=== PATIENT | male | born 1980 | race Caucasian/White ===

== ENCOUNTER 2016-10-28 15:01 | Inpatient (IN) | payer OTHER ==
[~2016-10-28] VITALS: Ht 175.3 cm; Wt 127.0 kg
[~2016-10-28 15:01] MED LIST: CLINDAMYCIN HC300 MG PO
[2016-10-28 16:03] LABS: EOSINOPHIL (%) 0.1 % (0-5); HEMATOCRIT 45.3 % (38.0-50.0); IMMATURE GRANULOCYTE (%) 0.2 % (0.0-0.7); IMMATURE GRANULOCYTE COUNT 0.2 K/uL; LYMPHOCYTE COUNT 0.8 K/uL (1.0-2.8); MCH 27.7 PG (29.0-34.0); MCHC 33.6 G/DL (30.0-36.0); MCV 82.5 FL (86-99); MEAN PLAT.VOLUME 9.6 uM^3 (9.0-12.4); MONOCYTE (%) 6.1 % (3-12); MONOCYTE COUNT 0.5 K/uL (0-0.8); NEUTROPHIL (%) 83.3 % (45-76); NEUTROPHIL COUNT 6.8 K/uL (1.8-6.4); PLATELET COUNT 278 K/uL (156-360); RBC DIS.WIDTH-CV 13.6 % (11.8-14.6); RBC DIS.WIDTH-SD 40.5 % (39-53); RED BLOOD COUNT 5.49 M/uL (4.00-5.50); WHITE BLOOD COUNT 8.2 K/uL (4.1-10.2)
[2016-10-28 16:21] LABS: CHLORIDE 104 mEq/L (99-109); POTASSIUM 5.1 mEq/L (3.7-5.4); SODIUM 137 mEq/L (136-147)
[2016-10-28 16:23] LABS: GLUCOSE 97 mg/dL (70-99)
[2016-10-28 16:24] LABS: ANION GAP 11 MEQ/L (2-14)
[2016-10-28 16:27] LABS: GFR ESTIMATE (CALCULATED) > 59 mL/min/
[2016-10-28 16:28] LABS: UREA NITROGEN (BUN) 10 mg/dL (9-23)
[2016-10-28 20:07] VITALS: BP 131/72
[2016-10-28 23:09] VITALS: BP 125/73
[2016-10-29 07:14] VITALS: BP 129/76
[2016-10-29 07:34] LABS: HEMATOCRIT 39.2 % (38.0-50.0); MCH 28.1 PG (29.0-34.0); MCHC 33.2 G/DL (30.0-36.0); MCV 84.7 FL (86-99); MEAN PLAT.VOLUME 9.9 uM^3 (9.0-12.4); PLATELET COUNT 213 K/uL (156-360); RBC DIS.WIDTH-CV 13.8 % (11.8-14.6); RED BLOOD COUNT 4.63 M/uL (4.00-5.50)
[2016-10-29 07:36] LABS: ANION GAP 5 MEQ/L (2-14); CHLORIDE 105 MEQ/L (99-109); GFR ESTIMATE (CALCULATED) > 59 mL/min/; GLUCOSE 92 mg/dL (70-99); SAMPLE HEMOLYSIS CHECK 0; SAMPLE ICTERIC CHECK 0; SAMPLE LIPEMIA CHECK 0; SODIUM 136 MEQ/L (136-147); UREA NITROGEN (BUN) 10 mg/dL (9-23)
[2016-10-29 07:37] LABS: POTASSIUM 3.7 MEQ/L (3.7-5.4)
[2016-10-29 07:54] LABS: WHITE BLOOD COUNT 4.6 K/uL (4.1-10.2)
[2016-10-29 15:51] VITALS: BP 158/64
[2016-10-29 22:43] VITALS: BP 122/66
[2016-10-30 07:12] LABS: EOSINOPHIL (%) 4.9 % (0-5); EOSINOPHIL COUNT 0.3 K/uL (0-0.3); HEMATOCRIT 40.5 % (38.0-50.0); IMMATURE GRANULOCYTE (%) 0.2 % (0.0-0.7); LYMPHOCYTE COUNT 1.7 K/uL (1.0-2.8); MCH 28.5 PG (29.0-34.0); MCHC 33.8 G/DL (30.0-36.0); MCV 84.4 FL (86-99); MEAN PLAT.VOLUME 9.9 uM^3 (9.0-12.4); MONOCYTE (%) 13.1 % (3-12); MONOCYTE COUNT 0.7 K/uL (0-0.8); NEUTROPHIL (%) 49.1 % (45-76); NEUTROPHIL COUNT 2.6 K/uL (1.8-6.4); PLATELET COUNT 175 K/uL (156-360); RBC DIS.WIDTH-CV 13.8 % (11.8-14.6); RBC DIS.WIDTH-SD 42.4 % (39-53); WHITE BLOOD COUNT 5.3 K/uL (4.1-10.2)
[2016-10-30 07:40] VITALS: BP 113/88
[2016-10-30 08:08] LABS: ALKALINE PHOSPHATASE 62 IU/L (3-129); ANION GAP 9 MEQ/L (2-14); CHLORIDE 107 MEQ/L (99-109); GFR ESTIMATE (CALCULATED) > 59 mL/min/; GLUCOSE 85 mg/dL (70-99); POTASSIUM 4.1 MEQ/L (3.7-5.4); SAMPLE HEMOLYSIS CHECK 0; SAMPLE ICTERIC CHECK 0; SAMPLE LIPEMIA CHECK 0; SODIUM 138 MEQ/L (136-147); TOTAL BILIRUBIN 0.5 MG/DL (0.0-1.0); UREA NITROGEN (BUN) 10 mg/dL (9-23)
[2016-10-30 08:12] LABS: VANCOMYCIN, TROUGH 19.6 MCG/ML (10-20)
[2016-10-30 15:32] VITALS: BP 105/71
[2016-10-31 07:00] LABS: Estimated Average Glucose 108 mg/dL (70-123); HEMOGLOBIN A1c (GLYCOHEMOGLOB) 5.4 % HGB (Below 5.7)
[2016-10-31 08:16] VITALS: BP 96/55
[2016-10-31 16:38] VITALS: BP 129/90
[2016-10-31 23:13] VITALS: BP 117/64
[2016-11-01 10:57] LABS: POINT-OF-CARE METER ID UU13113725
[2016-11-01 16:19] VITALS: BP 110/53
[2016-11-01 23:17] VITALS: BP 108/57
[2016-11-02 08:47] VITALS: BP 114/70
[2016-11-02 09:36] LABS: HEMATOCRIT 44.8 % (38.0-50.0); MCH 28.1 PG (29.0-34.0); MCHC 33.5 G/DL (30.0-36.0); MCV 83.9 FL (86-99); RBC DIS.WIDTH-CV 13.7 % (11.8-14.6); RBC DIS.WIDTH-SD 41.5 % (39-53); RED BLOOD COUNT 5.34 M/uL (4.00-5.50)
[2016-11-02 09:44] LABS: MEAN PLAT.VOLUME 10.1 uM^3 (9.0-12.4); PLATELET COUNT 236 K/uL (156-360)
[2016-11-02 12:30] VITALS: BP 133/83
[2016-11-02 16:00] VITALS: BP 120/68
[2016-11-02 22:40] VITALS: BP 129/66
[2016-11-03 07:45] VITALS: BP 124/80
[2016-11-03 16:18] VITALS: BP 119/62
[2016-11-04 06:49] LABS: ANION GAP 13 MEQ/L (2-14); CHLORIDE 105 MEQ/L (99-109); GFR ESTIMATE (CALCULATED) > 59 mL/min/; GLUCOSE 87 mg/dL (70-99); POTASSIUM 4.2 MEQ/L (3.7-5.4); SAMPLE HEMOLYSIS CHECK 0; SAMPLE ICTERIC CHECK 0; SAMPLE LIPEMIA CHECK 0; SODIUM 140 MEQ/L (136-147); UREA NITROGEN (BUN) 16 mg/dL (9-23)
[2016-11-04 07:16] VITALS: BP 117/69
[2016-11-04] MEDS ORDERED: LEVOFLOXACIN750 MG PO (08:10)
[2016-11-04] MEDS ORDERED: ENDOCET 5-3251 EACH PO (08:10)
[2016-11-04] MEDS ORDERED: TYLENOL REGULA325 MG PO (08:10)
== END 2016-11-04 15:17 | disposition home health service (06) | DRG 464 ==
LOC: EME 15:01 → EDOF 17:22 → 5EAST 17:22
PROVIDERS: Hospitalist; Internal Medicine
DX: M86.8X7 Other osteomyelitis, ankle and foot (principal); L03.115 Cellulitis of right lower limb; Z68.41 Body mass index [BMI] 40.0-44.9, adult; G60.9 Hereditary and idiopathic neuropathy, unspecified; L97.429 Non-pressure chronic ulcer of left heel and midfoot with unspecified severity; L97.519 Non-pressure chronic ulcer of other part of right foot with unspecified severity; B96.5 Pseudomonas (aeruginosa) (mallei) (pseudomallei) as the cause of diseases classified elsewhere; B95.61 Methicillin susceptible Staphylococcus aureus infection as the cause of diseases classified elsewhere; Z89.422 Acquired absence of other left toe(s); Z98.84 Bariatric surgery status; M67.01 Short Achilles tendon (acquired), right ankle; E66.9 Obesity, unspecified
CPT/HCPCS: 73630; 73718; 80048; 80053; 80202; 81003; 82948; 83036; 83605; 85025; 85027; 85651; 86140; 87040; 87070; 87075; 87077; 87147; 87186; 87205; 88305; 88311; 99281; 99285; J0330; J0461; J0690; J1100; J1650; J2250; J2405; J2543; J3010; J3370; J7030; J7050

== ENCOUNTER 2017-04-23 20:53 | Inpatient (IN) | payer OTHER ==
[~2017-04-23] VITALS: Ht 175.3 cm; Wt 129.2 kg
[~2017-04-23 20:53] MED LIST changes: +ENDOCET 5-3251 EACH PO; +LEVOFLOXACIN750 MG PO; +TYLENOL REGULA325 MG PO
[2017-04-24 13:29] VITALS: BP 130/67
[2017-04-24 14:25] LABS: HEMATOCRIT 42.3 % (38.0-50.0); MCH 27.8 PG (29.0-34.0); MCHC 32.6 G/DL (30.0-36.0); MCV 85.1 FL (86-99); MEAN PLAT.VOLUME 10.2 uM^3 (9.0-12.4); PLATELET COUNT 188 K/uL (156-360); RBC DIS.WIDTH-CV 13.5 % (11.8-14.6); RBC DIS.WIDTH-SD 41.8 % (39-53); RED BLOOD COUNT 4.97 M/uL (4.00-5.50); WHITE BLOOD COUNT 6.9 K/uL (4.1-10.2)
[2017-04-24 14:36] LABS: ANION GAP 11 MEQ/L (2-14); CHLORIDE 106 MEQ/L (99-109); POTASSIUM 3.9 MEQ/L (3.7-5.4); SAMPLE HEMOLYSIS CHECK 0; SAMPLE ICTERIC CHECK 0; SAMPLE LIPEMIA CHECK 0; SODIUM 140 MEQ/L (136-147)
[2017-04-24 14:42] LABS: GFR ESTIMATE (CALCULATED) > 59 mL/min/; GLUCOSE 82 mg/dL (70-99); UREA NITROGEN (BUN) 14 mg/dL (9-23)
[2017-04-24 19:20] VITALS: BP 150/74
[2017-04-24 20:03] VITALS: BP 150/74
[2017-04-24 23:21] VITALS: BP 133/78
[2017-04-25 04:31] VITALS: BP 126/80
[2017-04-25 07:30] LABS: HEMATOCRIT 37.5 % (38.0-50.0); MCH 27.9 PG (29.0-34.0); MCHC 32.8 G/DL (30.0-36.0); RBC DIS.WIDTH-CV 13.2 % (11.8-14.6); RBC DIS.WIDTH-SD 40.9 % (39-53); RED BLOOD COUNT 4.41 M/uL (4.00-5.50); WHITE BLOOD COUNT 12.4 K/uL (4.1-10.2)
[2017-04-25 07:35] LABS: ANION GAP 8 MEQ/L (2-14); CHLORIDE 103 MEQ/L (99-109); GFR ESTIMATE (CALCULATED) > 59 mL/min/; POTASSIUM 4.4 MEQ/L (3.7-5.4); SAMPLE HEMOLYSIS CHECK 0; SAMPLE ICTERIC CHECK 0; SAMPLE LIPEMIA CHECK 0; SODIUM 136 MEQ/L (136-147); UREA NITROGEN (BUN) 17 mg/dL (9-23)
[2017-04-25 07:36] LABS: GLUCOSE 119 mg/dL (70-99)
[2017-04-25 07:41] LABS: PLATELET COUNT 289 K/uL (156-360)
[2017-04-25 08:31] VITALS: BP 123/64
[2017-04-25 15:43] VITALS: BP 112/62
[2017-04-25 20:26] VITALS: BP 125/60
[2017-04-25 23:29] VITALS: BP 140/70
[2017-04-26 04:43] VITALS: BP 131/78
[2017-04-26 07:56] VITALS: BP 122/75
[2017-04-26] MEDS ORDERED: ENDOCET 5-3251 EACH PO (10:18)
== END 2017-04-26 11:27 | disposition home or self-care (01) | DRG 475 ==
LOC: ENRESERV 20:53 → 2SOUTH 04-24 09:48 → ENRESERV 04-24 17:31 → 3EAST 04-24 19:07
PROVIDERS: Surgery
PROC: 0Y6J0Z1 Detachment at Left Lower Leg, High, Open Approach (ICD-10-PCS; principal; 2017-04-24)
DX: M86.272 Subacute osteomyelitis, left ankle and foot (principal); Z68.41 Body mass index [BMI] 40.0-44.9, adult; G90.09 Other idiopathic peripheral autonomic neuropathy; F17.200 Nicotine dependence, unspecified, uncomplicated; Z98.84 Bariatric surgery status; E66.9 Obesity, unspecified; Z89.421 Acquired absence of other right toe(s); Z89.432 Acquired absence of left foot; L97.529 Non-pressure chronic ulcer of other part of left foot with unspecified severity
CPT/HCPCS: 80048; 85027; 86900; 86901; 86920; 88307; 94799; J0690; J1170; J1650; J1885; J2250; J2274; J2765; J3010; J7120

== ENCOUNTER 2018-01-04 10:01 | Day surgery (SDC) | payer OTHER ==
[~2018-01-04] VITALS: Ht 175.3 cm; Wt 127.5 kg
[~2018-01-04 10:01] MED LIST changes: +BACTRIM,SEPT1 TABLET PO
[2018-01-04 10:27] VITALS: BP 138/70
[2018-01-04 14:20] VITALS: BP 137/93
== END 2018-01-04 14:45 | disposition home or self-care (01) ==
LOC: SDC 10:01
PROC: 0Y6M0Z5 Detachment at Right Foot, Complete 2nd Ray, Open Approach (ICD-10-PCS; principal; 2018-01-04)
DX: M86.671 Other chronic osteomyelitis, right ankle and foot (principal); I96 Gangrene, not elsewhere classified; G62.9 Polyneuropathy, unspecified; I73.9 Peripheral vascular disease, unspecified; Z98.84 Bariatric surgery status; Z89.512 Acquired absence of left leg below knee
CPT/HCPCS: 88305; 88311; J0690; J1100; J1170; J2250; J2405; S0020

== ENCOUNTER → 2018-01-25 | Outpatient (CLI) | payer OTHER ==
[~2018-01-25] MED LIST changes: +CIPRO500 MG PO; +ESCITALOPRAM OX20 MG PO
== END | disposition home or self-care (01) ==
LOC: AMB 08:30
PROC: 0J9Q0ZZ Drainage of Right Foot Subcutaneous Tissue and Fascia, Open Approach (ICD-10-PCS; principal; 2018-01-25)
DX: L02.611 Cutaneous abscess of right foot (principal); Z89.421 Acquired absence of other right toe(s)
CPT/HCPCS: 87070; 87075; 87205